=== PATIENT | male | born 1965 | race Caucasian/White ===

== ENCOUNTER 2018-02-04 14:41 | Outpatient (CLI) | payer OTHER | END 2018-02-04 14:42 | disposition home or self-care (01) | LOC: BICCT 14:41 | PROVIDERS: ATTEND Internal Medicine Nephrology | DX: N18.3 Chronic kidney disease, stage 3 (moderate) (principal); N28.89 Other specified disorders of kidney and ureter; R91.8 Other nonspecific abnormal finding of lung field | CPT/HCPCS: 74176 ==

== ENCOUNTER 2018-02-07 10:46 | Outpatient (CLI) | payer OTHER ==
--- NOTE | 2018-02-07 13:26 | RAD ---
FIVE VIEWS CERVICAL SPINE: DATE: 02/07/18. COMPARISON: None. HISTORY: Evaluate postsurgical hardware. FINDINGS: Anterior diskectomy and fusion hardware present at the C3-4/C4-5 level. There are 2 screws inserted via an anterior approach at the C4 level and the C6 level. There is a probable fibular osseous graft spanning the C4, C5, and C6 vertebral bodies. There is anterior osteophyte formation at C3-4. Ther e is no anterolisthesis or retrolisthesis seen. Oblique imaging demonstrates mild neural foraminal stenosis on the basis of osteophyte encroachment a t C3-4, C4-5, and C5-6 bilaterally. Open mouth odontoid view demonstrates a normal-appearing dens in C1-2 articulation. IMPRESSION: Degenerative and postoperative changes within the cervical spine as above. POS: ALEXX
== END 2018-02-07 10:47 | disposition home or self-care (01) ==
LOC: RAD 10:46
PROVIDERS: ATTEND Specialist
DX: N28.89 Other specified disorders of kidney and ureter (principal); M47.892 Other spondylosis, cervical region; Z98.1 Arthrodesis status; Z98.890 Other specified postprocedural states
CPT/HCPCS: 72050

== ENCOUNTER 2018-02-11 10:53 | Day surgery (SDC) | payer OTHER ==
[2018-02-10 18:12] VITALS: BMI 40.1
--- NOTE | 2018-02-11 14:22 | CT ---
CT THORAX NONCONTRAST: DATE: 02/11/2018 HISTORY: A 52-year-old male for followup of right pulmonary nodules. COMPARISON: Noncontrast CT abdomen and pelvis from 02/04/2018 at [facility]. FINDINGS: There is a noncalcified nodule in the posterolateral base of the right lower lobe (axial images 44 th rough 46 of 73, series 3, and coronal images 135 through 147 of 201, series 601). This abuts the wyatt phragmatic pleural surface, posterolaterally. The oblique AP/transverse dimension is approximately 2 .5 to 3 cm. The anterior component consists of a spiculated nodule with dimensions of approximately 1 x 1 x 0.9 cm (axial image 44 of 73, series 3; 138 of 201, series 601). There is a tail that measur es several millimeters thick that travels posteromedially from this main lesion. There is a second lesion located more centrally, abutting the dome of the right hemidiaphragm. In th e axial images, it is approximately 0.8 x 0.8 cm (axial image 42 of 73, series 2 and 3). The craniocaudal dimension is approximately 0.3 cm (image 109 of 201, series 601). Finally, there is an approximately 0.9 x 0.8 x 1.4 cm triangular, noncalcified focal pulmonary nodule with a broad bas e against the posterior-inferior pleural surface, at the right posterior costophrenic angle (axial im age 55 of 73, series 3; coronal image 166 of 201, series 601). These are all demonstrated on that recent abdominal CT of a few days ago. The rest of the lungs are clear. No bronchiectasis. The trachea and main bronchi are patent and hattie ar. No destructive osseous lesion identified. No thoracic aortic aneurysm, cardiomegaly, pleural ef fusion, pneumothorax, pulmonary edema, or air space density. No mediastinal lymphadenopathy. Heavy atherosclerotic calcification of the coronary arteries. IMPRESSION: Three pleural based pulmonary nodules at the basilar segments of the right lower lobe (two of them ab ut the diaphragm). All three of them have appearances that are different from each other and are aty pical for pulmonary metastases. One of them has a spiculated head and a moderately long tail. Recom mend PET scan for further evaluation for this particular lesion. These are not amenable to percutane ous biopsy. CAPRICE Saenz POS: ALEXX
[2018-02-11] MEDS ORDERED: Gadobenate Dimeglumine 529 MG/1 ML (20ML VIAL) ONE (14:56)
--- NOTE | 2018-02-11 15:35 | MRI ---
MRI ABDOMEN WITH AND WITHOUT CONTRAST: HISTORY: Disorder or ureter/kidney. Left renal mass. COMPARISON: Multiple prior examinations, which were noncontrast. FINDINGS: The patient extravasated contrast from the exam; therefore, this is not an adequate multiphasic study . There is only minimal contrast enhancement due to the body's resorption of contrast from the soft tissues seen on the delayed sequence. There is a hemorrhagic mass of the posterior cortex inner pole left kidney with multiple internal sep tations. This mass measures 5.4 x 6.2 x 5.1 cm. It is approximately 75% exophytic and comes within 3 mm of the quadratus lumborum muscle without definite invasion. It appears to be well encapsulated. There are smaller cysts of the left kidney. The inferior pole right kidney has a mild T2 hyperinte nse and mild T1 hyperintense lesion, which is fairly homogeneous on the T2 signal, measuring 2.7 x 2. 5 x 2.6 cm. Evaluation for enhancement of these masses is limited due to lack of normal intravenous contrast. No intrahepatic or extrahepatic biliary dilatation. Marrow signal of the spine appears normal. No significant hepatic steatosis. Aortic contour is normal. IMPRESSION: 1. Dominant left posterior cortex inner pole mass, size as above, which comes within 3 mm of the isadora dratus lumborum muscle, highly suggestive of carcinoma. 2. Posterior cortex interpolar right renal lesion, very homogeneous with mild increased T2 signal an d mild increased T1 signal, likely reflective of a proteinaceous or hemorrhagic cyst, although, given the lack of intravenous contrast, due to the patient intravenous line extravasating, it cannot be de finitively dismissed. A contrast enhanced study is recommended. POS: ALEXX
== END 2018-02-11 17:00 | disposition home or self-care (01) ==
LOC: SDC/OP 10:53
PROVIDERS: ATTEND Urology
DX: N28.89 Other specified disorders of kidney and ureter (principal); I12.9 Hypertensive chronic kidney disease with stage 1 through stage 4 chronic kidney disease, or unspecified chronic kidney disease; E11.22 Type 2 diabetes mellitus with diabetic chronic kidney disease; N18.3 Chronic kidney disease, stage 3 (moderate); I25.10 Atherosclerotic heart disease of native coronary artery without angina pectoris; F41.9 Anxiety disorder, unspecified; F40.240 Claustrophobia; N40.1 Benign prostatic hyperplasia with lower urinary tract symptoms; R35.1 Nocturia; R91.1 Solitary pulmonary nodule; E66.01 Morbid (severe) obesity due to excess calories; Z68.41 Body mass index [BMI] 40.0-44.9, adult; Z86.718 Personal history of other venous thrombosis and embolism; Z79.01 Long term (current) use of anticoagulants; Z79.02 Long term (current) use of antithrombotics/antiplatelets; Z79.84 Long term (current) use of oral hypoglycemic drugs; Z79.899 Other long term (current) drug therapy; Z95.5 Presence of coronary angioplasty implant and graft; Z91.041 Radiographic dye allergy status
CPT/HCPCS: 71250; 74183; A9579

== ENCOUNTER 2018-05-01 10:53 | Outpatient (CLI) | payer OTHER ==
--- NOTE | 2018-05-01 14:59 | PET ---
PET CT: HISTORY: A 52-year-old male with a left renal mass. COMPARISON: None. CORRELATION: MRI abdomen, dated 02/11/2018. CT scan chest, dated 02/11/2018. TECHNIQUE: PET scanning with CT attenuation correction was performed from the base of the brain through the prox imal thighs following the intravenous administration of 11 millicuries of F18 fluorodeoxyglucose in t he right antecubital fossa. Imaging was performed after an uptake interval of 50 minutes. FINDINGS: No denis hypermetabolism is seen in the neck, chest, axillae, abdomen, pelvis, or inguinal regions. No hypermetabolic pulmonary nodules, or liver, adrenal, or skeletal lesions are identified. The renal masses noted on the CT scan used for attenuation correction and the MRI of the abdomen demo nstrate no abnormal FDG localization. There is physiologic activity in the GI and tracts, in the visualized portions of the brain, in th e skeletal musculature, and in the heart. The CT scan used for attenuation correction demonstrates no evidence of pleural effusions or ascites. There is colonic diverticulosis. IMPRESSION: 1. Negative PET scan. 2. Sensitivity of PET in the evaluation of renal malignancy is very low. POS: ALEXX
== END 2018-05-01 10:54 | disposition home or self-care (01) ==
LOC: PET 10:53
PROVIDERS: ATTEND Urology
DX: N28.89 Other specified disorders of kidney and ureter (principal)
CPT/HCPCS: 78815; A9552

== ENCOUNTER 2018-06-16 12:50 | Outpatient (CLI) | payer OTHER ==
--- NOTE | 2018-06-16 16:11 | NM ---
NUCLEAR MEDICINE TECHNETIUM 99M SCAN: Date: 06/16/18 HISTORY: Other specified disorders of kidney and ureter. COMPARISON: MRI 02/11/18. PET CT 05/01/18. FINDINGS: Real-time imaging of the abdomen was performed after the intravenous administration of MAG 37.8 mCi. The split function is 63.5% on the left and 36.5% on the right. No obstruction. IMPRESSION: Split function 63.5% on the left and 36.5% on the right. POS: ALEXX
== END 2018-06-16 12:51 | disposition home or self-care (01) ==
LOC: NM 12:50
PROVIDERS: ATTEND Urology
DX: N28.89 Other specified disorders of kidney and ureter (principal)
CPT/HCPCS: 78707; A9562

== ENCOUNTER 2020-05-09 14:15 | Outpatient (CLI) | payer OTHER ==
[2020-05-10 12:23] LABS: SARS-CoV-2 MS2 Positive; SARS-CoV-2 N Gene Negative; SARS-CoV-2 S Gene Negative; SARS-CoV-2 orf1ab Negative
== END 2020-05-09 14:16 | disposition home or self-care (01) ==
LOC: LABSCS 14:15
PROVIDERS: ATTEND Orthopaedic Surgery
DX: Z01.812 Encounter for preprocedural laboratory examination (principal); Z11.59 Encounter for screening for other viral diseases; M24.812 Other specific joint derangements of left shoulder, not elsewhere classified
CPT/HCPCS: 87635; U0003

== ENCOUNTER → 2020-05-13 | Day surgery (SDC) | payer OTHER ==
[2020-05-12 10:17] VITALS: BMI 34.7
[~2020-05-13] MED LIST: Fentanyl 100 MCG/2 ML VIAL ONE
== END ==
LOC: MRI 12:16
PROVIDERS: ATTEND Orthopaedic Surgery
DX: M24.812 Other specific joint derangements of left shoulder, not elsewhere classified (principal); I12.9 Hypertensive chronic kidney disease with stage 1 through stage 4 chronic kidney disease, or unspecified chronic kidney disease; E11.22 Type 2 diabetes mellitus with diabetic chronic kidney disease; N18.9 Chronic kidney disease, unspecified; I25.10 Atherosclerotic heart disease of native coronary artery without angina pectoris; F41.9 Anxiety disorder, unspecified; G47.00 Insomnia, unspecified; G89.29 Other chronic pain; F40.240 Claustrophobia; E66.9 Obesity, unspecified; Z68.34 Body mass index [BMI] 34.0-34.9, adult; Z53.8 Procedure and treatment not carried out for other reasons; Z79.01 Long term (current) use of anticoagulants; Z79.02 Long term (current) use of antithrombotics/antiplatelets; Z79.84 Long term (current) use of oral hypoglycemic drugs; Z79.899 Other long term (current) drug therapy; Z88.5 Allergy status to narcotic agent; Z91.041 Radiographic dye allergy status; Z95.5 Presence of coronary angioplasty implant and graft
CPT/HCPCS: J3010